=== PATIENT | female | born 1945 | race Caucasian/White ===

== ENCOUNTER 2016-12-25 07:34 | Emergency (ER) | payer MEDICARE, OTHER ==
[~2016-12-25 07:34] MED LIST: ALBUTEROL17 GM INH; ANTIVERT PO; BENZONATATE200 MG PO; CLONIDINE PO; FLEXERIL10 M1 PO; KEFLEX500 MG PO; LORTAB 5/500 TA1 TA1 PO; NORVASC PO; PHENERGAN PO; PHENTERMINE PO; PREDNISONE PO; TRIAMTERENE/HCT1 TA2 PO; VICODIN 5/1 TAB 5/50 PO; WELLBUTRIN PO; ZITHROMAX PO
== END 2016-12-25 07:43 | disposition home or self-care (01) ==
LOC: SED 07:34
DX: L76.82 Other postprocedural complications of skin and subcutaneous tissue (principal); M79.674 Pain in right toe(s); I10 Essential (primary) hypertension; Z90.710 Acquired absence of both cervix and uterus; Z88.2 Allergy status to sulfonamides; Z91.040 Latex allergy status; Z79.899 Other long term (current) drug therapy
CPT/HCPCS: 99282

== ENCOUNTER 2017-01-20 22:05 | Emergency (ER) | payer MEDICARE, OTHER | END 2017-01-20 23:09 | disposition home or self-care (01) | LOC: SED 22:05 | DX: J30.1 Allergic rhinitis due to pollen (principal); I10 Essential (primary) hypertension | CPT/HCPCS: 94640; 96372; 99283; J2930 ==